=== PATIENT | female | born 1990 | race Caucasian/White ===

== ENCOUNTER → 2020-06-28 11:35 | Outpatient (BNVA) | payer BC, SELFPAY | PROVIDERS: Family Provider Family Medicine; PCP Family Medicine; Visit Provider Family Medicine | DX: Z13.6 Encounter for screening for cardiovascular disorders (principal) | CPT/HCPCS: 80053; 80061; 85025 ==

== ENCOUNTER → 2020-08-02 10:41 | Outpatient (BNVA) | payer BC, SELFPAY | PROVIDERS: Family Provider Family Medicine; PCP Family Medicine; Visit Provider Nurse Practitioner Women's Health | DX: Z11.3 Encounter for screening for infections with a predominantly sexual mode of transmission (principal) | CPT/HCPCS: 87491; 87591; 87661 ==

== ENCOUNTER → 2021-07-29 10:19 | Outpatient (BNVA) | payer BC, SELFPAY | PROVIDERS: Family Provider Family Medicine; PCP Family Medicine; Visit Provider Nurse Practitioner Women's Health | DX: N92.6 Irregular menstruation, unspecified (principal); F41.9 Anxiety disorder, unspecified; F32.9 Major depressive disorder, single episode, unspecified | CPT/HCPCS: 81025 ==

== ENCOUNTER → 2021-09-02 12:57 | Outpatient (BNVA) | payer MEDICAID, SELFPAY | PROVIDERS: Family Provider Family Medicine; PCP Family Medicine; Visit Provider Obstetrics & Gynecology | DX: Z34.01 Encounter for supervision of normal first pregnancy, first trimester (principal) | CPT/HCPCS: 80307; 84315; 85027; 86592; 86762; 86803; 86850; 86900; 87086; 87340; 87806 ==

== ENCOUNTER → 2021-09-15 13:16 | Outpatient (BNVA) | payer MEDICAID, SELFPAY | PROVIDERS: Family Provider Family Medicine; PCP Family Medicine; Visit Provider Obstetrics & Gynecology | DX: Z34.80 Encounter for supervision of other normal pregnancy, unspecified trimester (principal) | CPT/HCPCS: 81000; 87491; 87591 ==

== ENCOUNTER → 2021-10-23 11:40 | Outpatient (BNVA) | payer MEDICAID, SELFPAY | PROVIDERS: Family Provider Family Medicine; PCP Family Medicine; Visit Provider Obstetrics & Gynecology | DX: O23.40 Unspecified infection of urinary tract in pregnancy, unspecified trimester (principal) | CPT/HCPCS: 81000 ==

== ENCOUNTER → 2021-11-10 09:59 | Outpatient (BNVA) | payer MEDICAID, SELFPAY | PROVIDERS: Family Provider Family Medicine; PCP Family Medicine; Visit Provider Obstetrics & Gynecology | DX: O32.1XX0 Maternal care for breech presentation, not applicable or unspecified (principal); Z3A.20 20 weeks gestation of pregnancy | CPT/HCPCS: 76805 ==

== ENCOUNTER → 2021-11-17 10:10 | Outpatient (BNVA) | payer MEDICAID, SELFPAY | PROVIDERS: Family Provider Family Medicine; PCP Family Medicine; Visit Provider Obstetrics & Gynecology | DX: Z34.00 Encounter for supervision of normal first pregnancy, unspecified trimester (principal) | CPT/HCPCS: 81000 ==

== ENCOUNTER → 2021-12-09 09:07 | Outpatient (BNVA) | payer MEDICAID, SELFPAY | PROVIDERS: Family Provider Family Medicine; PCP Family Medicine; Visit Provider Obstetrics & Gynecology | DX: Z34.01 Encounter for supervision of normal first pregnancy, first trimester (principal); K58.1 Irritable bowel syndrome with constipation; K21.9 Gastro-esophageal reflux disease without esophagitis; F41.9 Anxiety disorder, unspecified; F32.9 Major depressive disorder, single episode, unspecified | CPT/HCPCS: 81000; 82950 ==

== ENCOUNTER → 2022-01-05 09:13 | Outpatient (BNVA) | payer MEDICAID, SELFPAY | PROVIDERS: Family Provider Family Medicine; PCP Family Medicine; Visit Provider Obstetrics & Gynecology | DX: Z34.01 Encounter for supervision of normal first pregnancy, first trimester (principal) | CPT/HCPCS: 84315; 85027 ==

== ENCOUNTER → 2022-02-16 15:09 | Outpatient (BNVA) | payer MEDICAID, SELFPAY | PROVIDERS: Family Provider Family Medicine; PCP Family Medicine; Visit Provider Obstetrics & Gynecology | DX: Z34.00 Encounter for supervision of normal first pregnancy, unspecified trimester (principal) | CPT/HCPCS: 81000 ==

== ENCOUNTER → 2022-03-02 14:07 | Outpatient (BNVA) | payer MEDICAID, SELFPAY | PROVIDERS: Family Provider Family Medicine; PCP Family Medicine; Visit Provider Obstetrics & Gynecology | DX: Z34.00 Encounter for supervision of normal first pregnancy, unspecified trimester (principal) | CPT/HCPCS: 81000; 87081 ==

== ENCOUNTER → 2022-03-09 14:18 | Outpatient (BNVA) | payer MEDICAID, SELFPAY | PROVIDERS: Family Provider Family Medicine; PCP Family Medicine; Visit Provider Obstetrics & Gynecology | DX: Z34.01 Encounter for supervision of normal first pregnancy, first trimester; K58.1 Irritable bowel syndrome with constipation; K21.9 Gastro-esophageal reflux disease without esophagitis; F41.9 Anxiety disorder, unspecified; F32.9 Major depressive disorder, single episode, unspecified | CPT/HCPCS: 81000 ==

== ENCOUNTER → 2022-03-17 13:03 | Outpatient (BNVA) | payer MEDICAID, SELFPAY | PROVIDERS: Family Provider Family Medicine; PCP Family Medicine; Visit Provider Obstetrics & Gynecology | DX: Z34.01 Encounter for supervision of normal first pregnancy, first trimester (principal); K58.1 Irritable bowel syndrome with constipation; K21.9 Gastro-esophageal reflux disease without esophagitis; F41.9 Anxiety disorder, unspecified; F32.9 Major depressive disorder, single episode, unspecified | CPT/HCPCS: 81000 ==

== ENCOUNTER → 2022-03-23 14:24 | Outpatient (BNVA) | payer MEDICAID, SELFPAY | PROVIDERS: Family Provider Family Medicine; PCP Family Medicine; Visit Provider Obstetrics & Gynecology | DX: Z34.01 Encounter for supervision of normal first pregnancy, first trimester (principal); K58.1 Irritable bowel syndrome with constipation; K21.9 Gastro-esophageal reflux disease without esophagitis; F41.9 Anxiety disorder, unspecified; F32.9 Major depressive disorder, single episode, unspecified | CPT/HCPCS: 81000 ==

== ENCOUNTER 2022-03-24 18:17 | Inpatient (IN) | payer MEDICAID, SELFPAY ==
[2022-03-24] VITALS (54 sets, daily range): BP systolic 83–194; BP diastolic 48–110; PULSE 55–114; RESP 18; TEMP 36.1–36.8; O2SAT 97–100; BMI 36.8
--- NOTE | 2022-03-24 18:39 | W.PM.OPSUD ---
Surgery/Procedure H&P Update DATE OF PROCEDURE: March 25, 2022 DATE H&P PERFORMED: 03/23/22 H&P UPDATE INFORMATION: I have reviewed H&P completed within last 30 days, I have examined patient prior to procedure and Changes to prior documentation as noted here (Cervix:4-5) PREOP DIAGNOSIS: labor pain
--- NOTE | 2022-03-24 18:40 | PM.OPHPUD ---
Labor & Delivery H&P Update Date of Procedure: March 25, 2022 Date H&P Performed: 03/23/22 H&P update information: I have reviewed H&P completed within last 30 days, I have examined patient prior to procedure and Changes to prior documentation as noted here (Cervix4) Admission Diagnosis: Preop diagnosis: labor pain Planned procedure: Vaginal delivery
[2022-03-24 19:14] LABS: Basophils # 0.1 10^3/uL (0.0-0.1); Basophils % 0.3 %; Eosinophils # 0.1 10^3/uL (0.0-0.8); Eosinophils % 0.6 %; Hematocrit 38.1 % (37.0-47.0); Lymphocytes # 2.6 10^3/uL (0.8-4.8); Lymphocytes % 15.7 %; Mean Corpuscular HGB Conc 34.1 g/dL (30.0-36.0); Mean Corpuscular Hemoglobin 31.4 pg (28.0-34.0); Monocytes # 1.4 10^3/uL (0.2-0.9); Monocytes % 8.3 %; Neutrophils # 12.12 10^3/uL (1.8-7.7); Nucleated Red Blood Cells % 0 %; Platelet Count 256 10^3/cmm (130-400); Red Blood Count 4.14 10^6/uL (4.1-5.3); Red Cell Distribution Width 13.6 % (12.1-15.1); White Blood Count 16.4 10^3/uL (4.0-10.0)
[2022-03-24 19:33] LABS: Urine Creatinine 159 mg/dL (28-217)
[2022-03-24 19:34] LABS: Alanine Aminotransferase 17 U/L (0-33); Albumin Level 3.3 g/dL (3.5-5.2); Alkaline Phosphatase 170 IU/L (35-105); Anion Gap 14.8 (5-19); Aspartate Amino Transferase 26 U/L (0-32); Blood Urea Nitrogen 11 mg/dL (6-20); Calcium 8.5 mg/dL (8.5-10.5); Carbon Dioxide 21 mmol/L (22-29); Chloride 104 mmol/L (98-107); Globulin 2.8 g/dL (1.3-4.6); Glomerular Filtration Rate 117.4 mL/min (90-130); Glucose 69 mg/dL (65-115); Osmolality Calculated 280 mOsm/kg (285-295); Potassium 3.8 mmol/L (3.5-5.1); Sodium 136 mmol/L (136-145); Total Bilirubin 0.2 mg/dL (0.15-1.2); Total Protein 6.1 g/dL (6.6-8.7); Uric Acid 4.8 mg/dL (2.4-5.7)
[2022-03-24 19:43] LABS: Add Urine Microscopic? YES; Bilirubin Urine Neg (Negative); Blood Urine 2+ (Negative); Glucose Urine UA Norm (Normal); Ketones Urine Negative (Negative); Leukocyte Esterase Urine 2+ (Negative); Nitrate Urine Negative (Negative); Protein Urine 2+ (Negative); Urine Appearance Clear (CLEAR); Urine Color Yellow (Yellow); Urobilinogen Urine Norm (Negative); pH Urine 6 (5-7)
[2022-03-24 19:44] LABS: Add Urine Culture? Yes; Bacteria Urine 2+ /hpf; RBC Urine 0-4 /hpf (0-2); WBC Urine 25-40 /hpf (0-5)
[2022-03-24 19:49] LABS: Urine Protein Random 207 mg/dL
[2022-03-24] MEDS: lactated ringers 1,000 ML 999 ML IV (20:27)
[2022-03-24] MEDS: magnesium sulfate premix 4 GM/100 ML PREMIX IV (20:34)
[2022-03-24] MEDS: magnesium sulfate premix 2 GM/50 ML PIGGYBACK IV (20:54)
[2022-03-24] MEDS: magnesium sulfate premix 20 GM/500 ML BAG IV (21:19)
[2022-03-24] MEDS: dextrose 5%-lactated ringers 1,000 ML 75 ML IV (21:28)
--- NOTE | 2022-03-24 21:38 | P.ANESASSM_ITS ---
Pre-Anesthetic Assessment Height/Weight: Height 1.73 m Weight 109.769 kg Temp Pulse Resp BP 97.0 F L 86 18 154/88 03/24/22 17:53 03/24/22 21:32 03/24/22 18:00 03/24/22 21:32 Preop Diagnosis: labor pain epidural Familial anesthetic complications: none Was Beta [place] taken within 24 hours: N/A Was Clonidine taken within 24 hours: N/A Social No alcohol and No tobacco Exam alert, oriented x 3, clear to auscultation bilaterally and regular rate & rhythm Airway Submandibular: within normal limits Cervical ROM: within normal limits Mallampati: Class II Dentition: full Pulmonary None reported CV/HEM Hypertension (gestational) None reported Hepatic None reported GI Gastroesophageal Reflux Disease Metabolic None reported Musc/justinel DJD Neuropsych Anxiety and Depression pseudoseizures Anesthetic Plan ASA status: 2 Anesthesia: Regional (specify below) Risk of > 500 ml blood loss (7ml/kg in children): No Medications/Allergies Home Medications Medication Instructions Recorded Confirmed Last Taken Type acetaminophen 500 mg tablet 500 mg PO Q6H PRN 11/17/19 03/23/22 Unknown History (Tylenol Extra Strength) prenat.vits,farhat,czn-aabz-ebyce 1 tab PO DAILY 11/20/19 03/23/22 Unknown History MTHFR .ROUTE .daily 09/15/21 03/23/22 Unknown History famotidine 20 mg tablet See Rx Instructions .ROUTE 12/29/21 03/23/22 Unknown Rx .COMPLEX #90 tab Allergies Allergy/AdvReac Type Severity Reaction Status Date / Time erythromycin base Allergy rash Verified 03/23/22 14:14 Current Medications Generic Name Dose Route Start Last Admin Trade Name Freq PRN Reason Stop Dose Admin Lactated Ringer's 1,000 mls @ 999 mls/hr 03/24/22 18:18 03/24/22 20:27 Lactated Ringers IV 999 mls/hr .Q1H1M PRN Administration See label comments Magnesium Sulfate 20 gm in 500 mls @ 50 mls/hr 03/24/22 20:00 03/24/22 21:19 Magnesium Sulfate Premix IV 50 mls/hr .Q10H KELLE Administration PFSH Anesthesia Medical History Anxiety and depression Asthma GERD (gastroesophageal reflux disease) Irritable bowel syndrome (IBS) more constipation No pertinent past medical history neghx: htn,dm,thyroid,dvt/pe PCP: Zak Sleep apnea Surgical History History of myringotomy History of skin graft Oral History of tonsillectomy and adenoidectomy [place] teeth extracted Family History Mother Heart disease Hyperlipidemia Breast cancer, Onset Age: 53 Grandfather Heart disease Maternal and paternal Cancer Paternal, esophageal Grandmother Ovarian cancer Paternal, dx in 60s Cancer Maternal, leukemia Father Hyperlipidemia Other Hypertension Denies family history of Colon cancer Uterine cancer Stroke Social History Smoking and tobacco status: never smoked Female Reproductive History : 1 Data Anesthesia : 03/24/22 18:35 03/24/22 18:35 Short CBC 03/24/22 Range/Units 18:35 WBC 16.4 H (4.0-10.0) 10^3/uL Hgb 13.0 (11.5-15.3) g/dL Hct 38.1 (37.0-47.0) % MCV 92.0 (81-99) fl Plt Count 256 (130-400) 10^3/cmm Neut % (Auto) 74.0 % Neut # (Auto) 12.12 H (1.8-7.7) 10^3/uL BMP 03/24/22 18:35 Sodium 136 Potassium 3.8 Chloride 104 Carbon Dioxide 21 L BUN 11 Creatinine 0.6 Glucose 69 Calcium 8.5 Liver Function 03/24/22 Range/Units 18:35 Total Bilirubin 0.2 (0.15-1.2) mg/dL AST 26 (0-32) U/L ALT 17 (0-33) U/L Alkaline Phosphatase 170 H (35-105) IU/L Albumin 3.3 L (3.5-5.2) g/dL Urine 03/24/22 Range/Units 19:00 Urine Color Yellow (Yellow) Urine Appearance Clear (CLEAR) Urine pH 6 (5-7) Ur Specific [place] 1.020 (1.005-1.030) Urine Protein 2+ H (Negative) Urine Glucose (UA) Norm (Normal) Urine Ketones Negative (Negative) Urine Nitrate Negative (Negative) Urine Bilirubin Neg (Negative) Ur Leukocyte Esterase 2+ H (Negative) Urine RBC 0-4 H (0-2) /hpf Urine WBC 25-40 H (0-5) /hpf Cardiac Studies: No Data to Display
--- NOTE | 2022-03-24 22:15 | P.ANES_ITS ---
Anesthesia Procedures Procedure/Date: 03/24/22 epidural Procedure Narrative: epidural complete, bolus given, epidural pump initiated with ASSISTANT HOUSEKEEPING MANAGER education given, vitals taken during procedure using OBIX system and satisfactory throughout, patient admits to decrease pain, report of procedure to OB RN Epidural: Time Out Performed: Yes Consents Signed: Procedure Consent Consent: requested by attending/covering physician, from patient, risks and benefits reviewed and patient agrees to proceed Lumbar Level: L3-L4 Epidural position: sitting Epidural procedure: sterile prep of area, 1% lidocaine to numb the area (3 mL), 18 g needle, negative for paresthesia passed, neg for paresthesia, test dose given, 1.5% xylocaine 1:200k epi (5 mL), 0.2% Ropivacaine bolus ml (5 mL), placed PCEA, no systemic response, sterile dressing applied, L.U.D. no apparent complications and 0.2% Ropiavacaine @ mls/hr (13 mL/hr)
[2022-03-24] MEDS: acetaminophen 325 mg Tablet 650 MG PO (22:25)
[2022-03-25] VITALS (56 sets, daily range): BP systolic 105–154; BP diastolic 58–91; PULSE 74–122; RESP 15; TEMP 37.3–37.4; O2SAT 97
[2022-03-25 02:09] LABS: Magnesium Level (OB Only) 4.4 mg/dL (5.0-7.5)
[2022-03-25] MEDS: ondansetron 2 mg/ML SDV 2 mL 4 MG IVP (02:35)
[2022-03-25] MEDS: magnesium sulfate premix 20 GM/500 ML BAG IV ×2 (05:56→17:12)
[2022-03-25] MEDS: dextrose 5%-lactated ringers 1,000 ML 75 ML IV ×2 (06:10→19:28)
[2022-03-25 06:11] LABS: Magnesium Level (OB Only) 4.8 mg/dL (5.0-7.5)
--- NOTE | 2022-03-25 06:32 | P.PN_ITS ---
Subjective Subjective: Ms. Giraldo is a 31 year old G1 established patient with LMP of 06/23/2021, EN 03/30/2022 based on LMP and consistent with 7-week sonogram, placing her at 39 2/7 weeks today. Feeling comfortable. Vitals/I&O/Wt Last Vital Signs Temp 99.2 F 03/25/22 06:01 Pulse 122 H 03/25/22 06:30 Resp 18 03/24/22 18:00 BP 129/77 03/25/22 06:30 Pulse Ox 99 03/24/22 23:22 03/24/22 03/24/22 03/25/22 14:59 22:59 06:59 Intake Total 1470.15 / 1470.15 1109.583 / 2579.733 Output Total 450 / 450 362 / 812 Balance 1020.15 / 1020.15 747.583 / 1767.733 Weight last 48 hrs Weight 109.769 kg Physical Exam Narrative: GA: Alert and oriented ?3. Lungs: Clear to auscultation bilaterally. Heart: Regular rhythm and rate. Abdomen: Gravid, full the height equals dates, nontender. COLLECTOR OF INTERNAL REVENUE: SVE; dilation: 10 cm, effacement: 100%, station: +1, presentation: vx, membranes: SROM. Extremities: no edema, no cyanosis, no calves pain. heart tracing: Basal rate: 140's bpm, Variability: moderate, Accelerations: present, Decelerations: absent, Contraction: q3min. Urinary Catheter Management: Browne: Cath Placed During This Visit: yes Urinary Catheter Date of Insertion: 03/24/22 Urinary Catheter Time of Insertion: 21:00 Data : 03/24/22 18:35 03/24/22 18:35 A&P Assessment and plan (1) Active labor at term: Ms. Giraldo is a 31 year old G1 established patient with LMP of 06/23/2021, EN 03/30/2022 based on LMP and consistent with 7-week sonogram, placing her at 39 0/7 weeks today. Admitted to labor and delivery in labor. During triage eval uation patient was found to have elevated blood pressure, preeclampsia work-up show a protein creatinine ratio of 1.3. She was started on magnesium sulfate for seizure prophylaxis. Progressing adequately. heart tracing category 1. Good scalp stimulation. Anticipate vaginal delivery. Status: Acute (2) Preeclampsia: Status: Acute Plan Continue monitoring. Trial pushing. Attestations Medical Necessity Statement*: In my professional opinion per admitting diagnosis. Coding Level of Care Code Acute Terminal Worker for Triston Bledsoed Diagnoses Active labor at term Preeclampsia O14.90
--- NOTE | 2022-03-25 09:16 | P.PCNOB_ITS ---
Delivery Note: Date of delivery: March 25, 2022 Pre-delivery diagnoses: Term Post-delivery diagnoses: Term Procedure: Spontaneous vaginal delivery Delivering Physician: Doe Garcia MD Findings: 500 Delivery: The patient was noted to be complete and pushing, so was placed in the dorsal lithotomy position, prepped and draped in the usual sterile fashion for a vaginal delivery. Pt. Noted to have epidural anesthesia. At 0853 the patient delivered a viable term male weighing 3985g with scores of 8 and 9at one and five minutes, respectively. The vertex was delivered spontaneously over intact perineum. The patient was asked to push and the head delivered spontaneously in the KAY position, over an intact perineum. A nuchal cord was checked and 1 noted, and delivered through around head as necessary. The anterior shoulder delivered easily and the posterior shoulder followed. The remainder of the infant was easily delivered and the oropharynx and nasopharynx was bulb suctioned. The infant was noted to have spontaneous cry and spontaneous movement of all four extremities. The cord was clamped x 2 and cut and noted to have 2 arteries and one vein. The was passed to the mother's abdomen where nursing personnel were in attendance. The placenta delivered intact spontaneously and the uterus was explored. 20 units of Pitocin was placed in the IV bag to firm the uterus. Examination of the cervix and vaginal vault did not reveal any lacerations. A vaginal pack was then placed. Examination of the perineum showed second-degree laceration was noted. The laceration was repaired with 2-0 Vicryl in the normal fashion in a running non locking fashion to reapproximate the laceration in layers. The vaginal pack was then removed. The patient tolerated this procedure well, and recovered in L&D with her in their LDR room. All sponge and needle counts were correct. History History History 1 Term Miscarriages/Ectopic Living Children Coding Level of Care Code Acute Flexographic Printing Press Operator for Chg Torres
[2022-03-25 10:56] LABS: Magnesium Level (OB Only) 5.5 mg/dL (5.0-7.5)
[2022-03-25] MEDS: acetaminophen 325 mg Tablet 650 MG PO (11:58)
[2022-03-25] MEDS: ibuprofen 800 mg tablet PO ×2 (15:15→21:22)
[2022-03-25 17:01] LABS: Magnesium Level (OB Only) 5.4 mg/dL (5.0-7.5)
[2022-03-25] MEDS: docusate sodium 100 mg Capsule PO (17:13)
[2022-03-25 22:10] LABS: Hematocrit 29.2 % (37.0-47.0); Hemoglobin 10.3 g/dL (11.5-15.3); Mean Corpuscular HGB Conc 35.3 g/dL (30.0-36.0); Mean Corpuscular Hemoglobin 31.3 pg (28.0-34.0); Mean Corpuscular Volume 88.8 fl (81-99); Mean Platelet Volume 10.5 fL (7.4-10.4); Platelet Count 255 10^3/cmm (130-400); Red Blood Count 3.29 10^6/uL (4.1-5.3); Red Cell Distribution Width 13.6 % (12.1-15.1); White Blood Count 25.3 10^3/uL (4.0-10.0)
[2022-03-25 22:34] LABS: Magnesium Level (OB Only) 6.1 mg/dL (5.0-7.5)
[2022-03-26] VITALS (9 sets, daily range): BP systolic 116–150; BP diastolic 59–91; PULSE 73–103; RESP 15–17; TEMP 36.9–37.2; O2SAT 95
[2022-03-26] MEDS: magnesium sulfate premix 20 GM/500 ML BAG IV (05:05)
[2022-03-26] MEDS: prenatal vitamin Capsule 1 CAP PO (09:21)
[2022-03-26] MEDS: ibuprofen 800 mg tablet PO ×3 (09:21→22:31)
[2022-03-26] MEDS: docusate sodium 100 mg Capsule PO (09:21)
--- NOTE | 2022-03-26 10:27 | PM.PN ---
Subjective Subjective: Weight 31-year-old female G1, P1 status post continuous vaginal delivery day 1. Complicated with preeclampsia. Refers feeling better than yesterday Vitals/I&O/Wt Last Vital Signs Temp 99.3 F 03/25/22 09:19 Pulse 86 03/26/22 09:24 Resp 15 03/26/22 09:56 BP 133/84 03/26/22 09:24 Pulse Ox 97 03/25/22 23:37 03/25/22 03/26/22 03/26/22 22:59 06:59 14:59 Intake Total 500 / 1110 500 / 1610 Output Total 1375 / 1960 2750 / 4710 Balance -875 / -850 -2250 / -3100 Weight last 48 hrs Weight 109.769 kg Physical Exam Narrative: GA; alert and oriented x 3 HEENT: normal Breasts: engorged Nipples - skin intact Lungs; clear to auscultation Heart: regular rhythm, no murmurs. Abd: Appropriately tender. BS+. Uterine fundus below umbilicus. No Fundal Tenderness. Perineum: normal lochia. Extremities: no edema, no cyanosis, no tenderness. Urinary Catheter Management: Browne: Cath Placed During This Visit: yes Reason for Continuing Indwelling Catheter: Accurate Measurement of Urinary Output in Critically Ill Patients Urinary Catheter Date of Insertion: 03/24/22 Urinary Catheter Time of Insertion: 21:00 Data : 03/25/22 22:01 03/24/22 18:35 A&P Assessment and plan (1) Post term , delivered, current hospitalization: White 31-year-old female G1, P1, admitted in active labor and diagnosed with preeclampsia. She progressed to have a spontaneous vaginal delivery complicated by hemorrhage treated with TXA and misoprostol. Magnesium sulfate discontinued this AM, adequate diuresis. BP under control for the last 15 hours. Status: Acute (2) Preeclampsia: Status: Acute Plan Continue observation. Attestations Medical Necessity Statement*: My professional opinion per admitting diagnosis Coding Level of Care Code Acute Internet Project Manager for Chg Fwd Diagnoses Post term , delivered, current hospitalization O48.0 Preeclampsia O14.90
[2022-03-26] MEDS: benzocaine-menthol 78 gm Canister 1 SPRAY TOPICAL (10:37)
--- NOTE | 2022-03-26 10:58 | PC.NURSE ---
Pt ambulated from bed to bathroom without difficulty. Pad changed, hilary care performed. Tucks and dermaplast administered for comfort.
--- NOTE | 2022-03-26 14:55 | ANE.PACU2 ---
Inpatient post-anesthesia follow up: Airway intact: Yes Vital signs: Temperature 99.3 F Pulse Rate 86 Respiratory Rate 15 Blood Pressure 133/84 Pulse Oximetry 97 Oxygen Delivery Me thod Room Air Oxygen Flow Rate Fraction of Inspir ed Oxygen Hydration adequate: Yes Nausea and vomiting: No Pain level: 1 Mental status: Baseline
[2022-03-27 01:59] VITALS: TEMP 37
[2022-03-27 05:00] VITALS: BP 157/100; PULSE 94; TEMP 36.8; O2SAT 98
[2022-03-27 05:10] VITALS: BP 147/93
[2022-03-27] MEDS: ibuprofen 800 mg tablet PO (09:04)
[2022-03-27] MEDS: prenatal vitamin Capsule 1 CAP PO (09:04)
[2022-03-27] MEDS: docusate sodium 100 mg Capsule PO (09:05)
--- NOTE | 2022-03-27 10:38 | PM.OBGYDC ---
Discharge Providers GRAPHIC DESIGN ASSISTANT Date of Admission: 03/24/22 18:17 Date of Discharge: 03/27/22 Attending Provider at Admission: Doe Garcia MD Attending Provider at Discharge: Doe Garcia MD Primary Care Provider: Yomaira Crespo DO Diagnoses at Discharge Discharge Diagnosis (1) Term delivered: Status: Acute (2) Preeclampsia: Status: Acute Reason for Visit Reason for Visit: inductions Hospital Course Hospital Course Ms. Giraldo is a 31 year old G1 established patient with LMP of 06/23/2021, EN 03/30/2022 based on LMP and consistent with 7-week sonogram, placing her at 39 1/7 weeks when she came to labor and delivery in active labor. During labor she was diagnosed with preeclampsia. She progressed to have a spontaneous vaginal delivery without complications. She received magnesium sulfate for 24 hours. Had adequate diuresis. She is afebrile and hemodynamically stable day 2. Continue with mild elevated blood pressure. She was counseled regarding severe preeclampsia and signs and symptoms. Tolerating diet well. Ambulating without difficulty. Instructed to follow-up in 2 weeks and to monitor blood pressure at home. Information Peripartum Data: Infant Delivery Method: Vaginal Physical Exam Narrative: GA; alert and oriented x 3 HEENT: normal Breasts: engorged Nipples - skin intact Lungs; clear to auscultation Heart: regular rhythm, no murmurs. Abd: Appropriately tender. BS+. Uterine fundus below umbilicus. No Fundal Tenderness. Perineum: normal lochia. Extremities: no edema, no cyanosis, no tenderness. Urinary Catheter Management: Browne: Cath Placed During This Visit: yes, but has since been removed by the nurse Reason for Continuing Indwelling Catheter: Accurate Measurement of Urinary Output in Critically Ill Patients Urinary Catheter Date of Insertion: 03/24/22 Urinary Catheter Time of Insertion: 21:00 Date Urinary Catheter Removed: 03/26/22 Time Urinary Catheter Discontinued: 09:00 History History History 1 Term Miscarriages/Ectopic Living Children Discharge Data Studies Completed and Pending Laboratory Results WBC 25.3 10^3/uL (4.0-10.0) H 03/25/22 22:01 RBC 3.29 10^6/uL (4.1-5.3) L 03/25/22 22:01 Hgb 10.3 g/dL (11.5-15.3) L 03/25/22 22:01 Hct 29.2 % (37.0-47.0) L 03/25/22 22:01 MCV 88.8 fl (81-99) 03/25/22 22:01 MCH 31.3 pg (28.0-34.0) 03/25/22 22:01 MCHC 35.3 g/dL (30.0-36.0) 03/25/22 22:01 RDW 13.6 % (12.1-15.1) 03/25/22 22:01 Plt Count 255 10^3/cmm (130-400) 03/25/22 22:01 MPV 10.5 fL (7.4-10.4) H 03/25/22 22:01 Neut % (Auto) 74.0 % 03/24/22 18:35 Lymph % (Auto) 15.7 % 03/24/22 18:35 [place] % (Auto) 8.3 % 03/24/22 18:35 Eos % (Auto) 0.6 % 03/24/22 18:35 Baso % (Auto) 0.3 % 03/24/22 18:35 Neut # (Auto) 12.12 10^3/uL (1.8-7.7) H 03/24/22 18:35 Lymph # (Auto) 2.6 10^3/uL (0.8-4.8) 03/24/22 18:35 [place] # (Auto) 1.4 10^3/uL (0.2-0.9) H 03/24/22 18:35 Eos # (Auto) 0.1 10^3/uL (0.0-0.8) 03/24/22 18:35 Baso # (Auto) 0.1 10^3/uL (0.0-0.1) 03/24/22 18:35 Nucleated RBC % (auto) 0 % 03/24/22 18:35 Nucleated RBCs # 0.0 /100WBC 03/24/22 18:35 Sodium 136 mmol/L (136-145) 03/24/22 18:35 Potassium 3.8 mmol/L (3.5-5.1) 03/24/22 18:35 Chloride 104 mmol/L (98-107) 03/24/22 18:35 Carbon Dioxide 21 mmol/L (22-29) L 03/24/22 18:35 Anion Gap 14.8 (5-19) 03/24/22 18:35 BUN 11 mg/dL (6-20) 03/24/22 18:35 Creatinine 0.6 mg/dL (0.5-0.9) 03/24/22 18:35 GFR Calculation 117.4 mL/min (90-130) 03/24/22 18:35 Glucose 69 mg/dL (65-115) 03/24/22 18:35 Calculated Osmolality 280 mOsm/kg (285-295) L 03/24/22 18:35 Uric Acid 4.8 mg/dL (2.4-5.7) 03/24/22 18:35 Calcium 8.5 mg/dL (8.5-10.5) 03/24/22 18:35 Magnesium 6.0 mg/dL (5.0-7.5) 03/26/22 04:16 Total Bilirubin 0.2 mg/dL (0.15-1.2) 03/24/22 18:35 AST 26 U/L (0-32) 03/24/22 18:35 ALT 17 U/L (0-33) 03/24/22 18:35 Alkaline Phosphatase 170 IU/L (35-105) H 03/24/22 18:35 Total Protein 6.1 g/dL (6.6-8.7) L 03/24/22 18:35 Albumin 3.3 g/dL (3.5-5.2) L 03/24/22 18:35 Globulin 2.8 g/dL (1.3-4.6) 03/24/22 18:35 Urine Color Yellow (Yellow) 03/24/22 19:00 Urine Appearance Clear (CLEAR) 03/24/22 19:00 Urine pH 6 (5-7) 03/24/22 19:00 Ur Specific [place] 1.020 (1.005-1.030) 03/24/22 19:00 Urine Protein 2+ (Negative) H 03/24/22 19:00 Urine Glucose (UA) Norm (Normal) 03/24/22 19:00 Urine Ketones Negative (Negative) 03/24/22 19:00 Urine Blood 2+ (Negative) H 03/24/22 19:00 Urine Nitrate Negative (Negative) 03/24/22 19:00 Urine Bilirubin Neg (Negative) 03/24/22 19:00 Urine Urobilinogen Norm mg/dL (Negative) 03/24/22 19:00 Ur Leukocyte Esterase 2+ (Negative) H 03/24/22 19:00 Urine RBC 0-4 /hpf (0-2) H 03/24/22 19:00 Urine WBC 25-40 /hpf (0-5) H 03/24/22 19:00 Ur Squamous Epith Cells 5-10 /hpf (0-5) H 03/24/22 19:00 Amorphous Sediment Not Reportable 03/24/22 19:00 Urine Bacteria 2+ /hpf (NONE) H 03/24/22 19:00 U Random Total Protein 207 mg/dL 03/24/22 19:00 Urine Creatinine 159 mg/dL (28-217) 03/24/22 19:00 Protein/Creatinin Ratio 1.30 mg/mg CR 03/24/22 19:00 Vitals Last Vital Signs Temp 98.3 F 03/27/22 05:00 Pulse 94 03/27/22 05:00 Resp 17 03/26/22 21:00 BP 147/93 03/27/22 05:10 Pulse Ox 98 03/27/22 05:00 Discharge Plan Discharge Patient Disposition: Home Condition: Stable Prescriptions: New docusate sodium [Colace] 100 mg capsule 100 mg PO BID Qty: 60 0RF methyldopa 500 mg tablet 500 mg PO BID Qty: 30 0RF acetaminophen 325 mg capsule 325 mg PO Q4H PRN (Reason: fever or pain) Qty: 60 0RF ferrous sulfate [Iron (ferrous sulfate)] 325 mg (65 mg iron) tablet 325 mg PO BID 30 Days Qty: 60 0RF ibuprofen 800 mg tablet 800 mg PO TID PRN (Reason: pain) Qty: 60 0RF Continued acetaminophen [Tylenol Extra Strength] 500 mg tablet 500 mg PO Q6H PRN0RF prenat.vits,farhat,lef-ghcs-grvur Tablet 1 tab PO DAILY 0RF MTHFR .Route .daily 0RF Rx Instructions: 1 capsule daily famotidine 20 mg tablet See Rx Instructions .ROUTE .COMPLEX Qty: 90 0RF Dose Instruction: TAKE 1 TABLET BY MOUTH EVERY DAY Rx Instructions: TAKE 1 TABLET BY MOUTH EVERY DAY Discharge Orders: Discharge Order (Routine); Ordered 03/27/22 Ordered By: Doe Garcia Referrals: Doe Garcia MD [Physician] - 05/08/22 3:45 pm (6 week post- appointment for 05/08/22 @3:45. ) Discharge Diet: Low Salt Discharge Activity: Limit activity as instructed Patient Instructions: Depression (DC), Bleeding (DC), Preeclampsia and Eclampsia After Delivery (GEN), OB Discharge Report, OB Food/Drug Interaction Guide, OB Care at Home, Opioid Safety, OB Home Care, OB Vaginal Deliveries - [facility], Abnormal Bleeding Activity Restrictions/Additional Instructions: 1. Please call [facility] on next working day to make your appointment in 2 weeks to monitor blood pressure. 2. Please stay home until you come back to the clinic on first post-operative check up. 3. Please follow instructions on your medications CAREFULLY. 4. If you have abdominal incision, do not cover it unless dressing is necessary because of drainage. OK to shower, but avoid bath. Leave steri-strips until they fall off. If they are still on one week after surgery, you may remove them. 5. If you had vaginal surgery or vaginal repair, Dr. Garcia may instruct you to take SITZ bath. 6. Yellow, blood tinged odorous vaginal discharge is usually normal after hysterectomy or vaginal surgeries. 7. No sexual intercourse, tampons, or douches until you are completely released from the post-operative care. 8. Avoid constipation by eating right and maybe using some Metamucil or Milk of Magnesia. 9. All prescription refills are given during the working hours. Please do no wait till it runs out. Call the clinic at [phone] before your medication runs out. The clinic will get in touch with your doctor to prescribe medications if necessary. 10. Please remain within 40 mile radius from our hospital because emergencies do happen now and then during the post-operative period. 11. If you have stairs at home, take one step at a time slowly and minimize the number of trips. It helps to stay in one floor for the next few days. No lifting except what you can lift by one hand until you are released from the post-operative care. 12. Driving is discouraged until you are well healed. It may be 3-4 weeks before you feel strong enough to drive. You should be able to turn and look through the rear window without pain and you should be able to push the brake pedal very hard without pain before you drive. No fast rules, but SAFETY should be your primary concern. DO NOT drive if you are on sedating medications such as narcotics. 13. Call the clinic (during working hours) to make urgent appointment or go to the Emergency room, if any of the following occurs: i. Vaginal bleeding becomes heavy, more than a period. ii. Incision becomes red and sore, or drains pus. iii. Your temperature is over 100.4 or you have chill. iv. IV site becomes red and swollen (a little ``knot?? is usually OK) v. Persistent nausea and vomiting vi. Persistent constipation or diarrhea vii. Rash or allergic reaction to medications. Discharge Attestations GRAPHIC DESIGN ASSISTANT Time Spent in Discharge Care*: greater than 30 min Coding Level of Care Code Acute Label Rewinder for [facility] Fwd Diagnoses Preeclampsia O14.90 Term delivered O80
[2022-03-27 13:21] VITALS: BP 147/93
== END 2022-03-27 12:50 | disposition home or self-care (01) | DRG 807 ==
LOC: OPOB 18:18 → OBGYN 18:18
PROVIDERS: Admitting Provider Obstetrics & Gynecology; Family Provider Family Medicine; PCP Family Medicine; Visit Provider Obstetrics & Gynecology
DX: O14.94 Unspecified pre-eclampsia, complicating childbirth (principal); Z37.0 Single live birth; Z3A.39 39 weeks gestation of pregnancy; O99.344 Other mental disorders complicating childbirth; O69.2XX0 Labor and delivery complicated by other cord entanglement, with compression, not applicable or unspecified; O70.1 Second degree perineal laceration during delivery; F41.8 Other specified anxiety disorders; O75.89 Other specified complications of labor and delivery; J45.909 Unspecified asthma, uncomplicated; K21.9 Gastro-esophageal reflux disease without esophagitis; K58.1 Irritable bowel syndrome with constipation
CPT/HCPCS: 36415; 51702; 59025; 59409; 80053; 81001; 82570; 83735; 83986; 84156; 84550; 85025; 85027; 87086; 99211; J2405; J2795; J3475

== ENCOUNTER → 2022-07-28 16:12 | Outpatient (BNVA) | payer MEDICAID, SELFPAY | PROVIDERS: Family Provider Family Medicine; PCP Family Medicine; Visit Provider Obstetrics & Gynecology | DX: Z12.4 Encounter for screening for malignant neoplasm of cervix (principal) | CPT/HCPCS: 87624 ==

== ENCOUNTER 2022-10-26 13:46 | Outpatient (CLI) | payer MEDICAID, SELFPAY ==
--- NOTE | 2022-10-26 13:58 | XRR_ITS ---
PROCEDURE INFORMATION: Exam: XR Sacrum and Coccyx, 2 or More Views Exam date and time: 10/26/2022 2:15 PM Age: 32 years old Clinical indication: Pain in coccyx area; Patient HX: Lower back pain since giving 7 , months ago; Additional info: Sacral pain TECHNIQUE: Imaging protocol: XR of the sacrum and coccyx, 2 or more views. COMPARISON: CR XR lumbar spine 2-3V* [id number] 08/25/2019 11:44 AM FINDINGS: Bones/joints: Normal. No acute fracture. Soft tissues: Normal. XR/XR sacrum coccyx min 2V [id number] IMPRESSION: No acute findings.
--- NOTE | 2022-10-26 13:58 | XRR_ITS ---
PROCEDURE INFORMATION: Exam: XR Lumbosacral Spine Exam date and time: 10/26/2022 2:15 PM Age: 32 years old Clinical indication: Low back pain; Patient HX: Lower back pain since giving 7 , months ago TECHNIQUE: Imaging protocol: Radiologic exam of the lumbosacral spine. Views: 2 or 3 views. COMPARISON: CR XR lumbar spine 2-3V* [id number] 08/25/2019 11:44 AM FINDINGS: Bones/joints: Normal. No acute fracture. Normal alignment. Soft tissues: Unremarkable. XR/XR lumbar spine 2-3V* [id number] IMPRESSION: No acute findings.
== END 2022-10-26 13:47 | disposition home or self-care (01) ==
PROVIDERS: PCP Family Medicine; Visit Provider Family Medicine
DX: M53.3 Sacrococcygeal disorders, not elsewhere classified (principal); M54.41 Lumbago with sciatica, right side
CPT/HCPCS: 72100; 72220

== ENCOUNTER 2022-12-10 07:52 | Outpatient (CLI) | payer MEDICAID, SELFPAY ==
--- NOTE | 2022-12-10 07:45 | US_ITS ---
WS: [id number] RIGHT UPPER QUADRANT ULTRASOUND HISTORY: ruq pain COMPARISON: None available. Liver: 20.6 cm in length. Mildly prominent liver. Suspect Ada's lobe which is a normal variant. Th e parenchyma is normal. No mass or bile duct dilatation. Portal Vein: Normal hepatopetal flow with monophasic waveform. Gallbladder: Normally distended gallbladder with no stones or wall thickening. CBD: 0.3 cm Pancreas: Normal size and echogenicity. Right kidney: 10.5 cm in length. Normal size and echogenicity. No hydronephrosis or mass. Aorta and IVC: Unremarkable abdominal aorta and IVC. No ascites. US/US gall bladder [id number] IMPRESSION: 1. Normal gallbladder. 2. Elongated RIGHT lobe of the liver. Most consistent with a Ada's lobe whi ch is a normal variant.
== END 2022-12-10 07:53 | disposition home or self-care (01) ==
LOC: RAD 07:55
PROVIDERS: PCP Family Medicine; Visit Provider Family Medicine
DX: R10.11 Right upper quadrant pain (principal)
CPT/HCPCS: 76705

== ENCOUNTER 2022-12-23 06:00 | Outpatient (RCR) | payer MEDICAID, SELFPAY | END 2023-01-15 23:59 | disposition home or self-care (01) | LOC: SPT 06:00 | PROVIDERS: PCP Family Medicine; Visit Provider Family Medicine | DX: M54.41 Lumbago with sciatica, right side (principal); G89.29 Other chronic pain | CPT/HCPCS: 97110; 97161 ==

== ENCOUNTER 2023-01-16 06:00 | Outpatient (RCR) | payer MEDICAID, SELFPAY | END 2023-02-01 23:59 | disposition home or self-care (01) | LOC: SPT 06:00 | PROVIDERS: PCP Family Medicine; Visit Provider Family Medicine | DX: M54.41 Lumbago with sciatica, right side (principal) | CPT/HCPCS: 97110 ==

== ENCOUNTER → 2024-06-07 11:59 | Outpatient (BNVA) | payer MEDICAID, SELFPAY | PROVIDERS: PCP Family Medicine; Visit Provider Family Medicine | DX: O14.95 Unspecified pre-eclampsia, complicating the puerperium (principal) | CPT/HCPCS: 80053; 80061; 82306; 83090; 84439; 84443; 85025 ==

== ENCOUNTER → 2025-04-05 11:17 | Outpatient (BNVA) | payer MEDICAID, SELFPAY | PROVIDERS: PCP Family Medicine; Visit Provider Podiatrist Foot & Ankle Surgery | DX: M72.2 Plantar fascial fibromatosis (principal); M79.671 Pain in right foot | CPT/HCPCS: 73630 ==